=== PATIENT | female | born 1980 | race Caucasian/White ===

== ENCOUNTER 2024-05-31 21:28 | Observation (INO) ==
[2024-05-31 22:32] LABS: Basophils #(Absolute) Auto 0.1 (0.0-0.1)
[2024-05-31 22:33] LABS: Basophils%(Percent) Auto 0.6 (0.1-0.85); Eosinophils#(Absolute)Auto 0.3 (0.0-0.2); Eosinophils%(Percent) Auto 1.1 % (0.4-2.8); Granulocytes % - Auto 73.7 % (47.8-71.3); Granulocytes#(Absolute)- Auto 16.5 (2.3-6.0); Hematocrit 40.1 % (35.9-46.7); Mean Corpuscular Volume 97.8 fl (81.0-93.7); Monocytes #(Absolute)- Auto 1.5 (1.1-3.1); Monocytes %(Percent)- Auto 6.7 % (3.6-9.8); Platelet Count 372 K/uL (152-353)
[2024-05-31 22:38] LABS: White Blood Count 22.9 K/uL (4.3-9.3)
[2024-05-31 22:57] LABS: Amphetamine Screen Urine POS. (NEGATIVE); Cannabinoid Screen Urine POS. (NEGATIVE); Cocaine Screen Urine NEG. (NEGATIVE); Methadone Screen Urine NEG. (NEGATIVE); Opiate Screen Urine NEG. (NEGATIVE)
--- NOTE | 2024-05-31 23:11 | Emergency Department Note ---
HPI - Altered Mental Status General Chief Complaint: Altered Mental Status Stated Complaint: LATHARGIC Time Seen by Provider: 05/31/24 22:30 Source: patient and family (son) Mode of arrival: WC Limitations: altered mental status History of Present Illness HPI narrative: 44-year-old female presents to the ED this evening, via POV, with complaints of altered mental status per family member. Upon arrival, pt was incontinent of urine and bowel. Per son, patient came home with her at approximately 9 PM after a trip to [facility] when pt's came inside and told the son that he could not wake patient. Patient remained in the car reportedly with eyes open, mouth open, with an audible snore. Patient was out for at least 5 to 6 minutes. Patient cannot recall the events. Patient is awake now and complains of right arm numbness x 3 days and states that she has not felt good for the past 3 days. Symptoms include subjective fever, chills, headache, body aches and dry cough. Denies nasal congestion sore throat, sore throat, abdominal pain, chest pain, shortness of breath, urinary complaints, nausea and vomiting, diarrhea, known sick contacts, recent travel. Patient does admit to using weed today, but denies any other drugs. Denies any use of alcohol or other substance. Headache pain is described as 5 out of 10 on pain scale, aching, located in the back of patient's head, better with Tylenol, worse with nothing. 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 Diagnosis unknown. complaint: altered mental status Onset (ago): hour(s) (1.5) Time: 21:00 Timing confirmed by: family member (Son) Severity: moderate Consistency of symptoms: unknown Context: drug abuse (weed) and recent fever (subjective) Associated symptoms: cough (Dry), fever (Subjective fever), chills, headaches and other (body aches) Treatments prior to arrival: other (Patient states she last took Tylenol at 10 AM this morning.) Related Data Allergies Allergy/AdvReac Type Severity Reaction Status Date / Time No Known Drug Allergies Allergy Verified 05/31/24 23:16 Review of Systems Status of ROS 10 or more systems reviewed and unremark able except as noted in history and below Constitutional Reports: fever (Subjective), chills and fatigue Eyes Denies: change in vision, eye discomfort or eye discharge Ears, nose, mouth, and throat Reports: dry mouth; Denies: throat pain, neck pain, throat swelling, difficulty swallowing, hoarseness, ear pain, change in hearing (Patient wears hearing aids chronically) or nasal congestion Cardiovascular Denies: chest pain, palpitations, edema, swelling of feet/ankles or lightheadedness Respiratory Reports: cough (Dry); Denies: shortness of breath, wheezing, pain on inspiration or chest congestion Gastrointestinal Reports: other (Denies dark, tarry stool); Denies: abdominal pain, nausea, vomiting, diarrhea, constipation (Last bowel movement was today and described as normal) or blood in stool Genitourinary Denies: painful urination, urinary frequency, urinary urgency, urinary incontinence, blood in urine, decreased urine ouput, pelvic pain or vaginal discharge Musculoskeletal Reports: other (Generalized body aches); Denies: extremity swelling or limited range of motion Integumentary/Breast Denies: rash, itching, changes in skin color or jaundice Neurological Reports: headache and numbness in extremities (Right arm x 3 days); Denies: weakness in extremities, lack of coordination, dizziness, slurred speech or difficulty communicating thoughts Psychiatric Denies: anxiety or difficulty concentrating Endocrine Reports: fatigue; Denies: excessive urination or excessive thirst Hematologic/Lymphatic Denies: easy bruising or easy bleeding PFSH PFS Medical History Wears hearing aid Hearing deficit GERD (gastroesophageal reflux disease) Hernia Surgical History No pertinent past surgical history Social History (Updated 05/31/24 @ 23:27 by Roslyn Fish APRN) Smoking status: current every day smoker What tobacco products do you use: cigarettes Within the past year, how often did you have a drink containing alcohol: monthly or less Non-prescribed substance use: cannabis (any form) Caffeine: Yes Exam Constitutional: abnormal general appearance (disheveled), (lethargic) and (appears older than stated age), no apparent distress, abnormal body habitus (thin), no limitations and alert Vital Signs - 24 hr 05/31/24 21:30 Temperature 97.9 F Pulse Rate 130 H Respiratory Rate 22 Blood Pressure 128/66 Pulse Oximetry 94 L Oxygen Delivery Me thod Room Air HENMT: normocephalic, head/scalp atraumatic, hearing grossly normal bilaterally (At baseline, patient wears hearing aids chronically), external ears normal, TMs abnormal (dull) (Bilateral) and (fluid behind TM) (Bilateral), nasal mucous membranes normal, external nose normal, oral mucous membranes abnormal (dry) and oropharynx abnormal (erythema) (Mild pharyngeal erythema) Diffuse dental caries Eyes: PERRL, EOMs intact bilaterally, conjunctivae normal, no scleral icterus, alignment normal and periorbital findings normal Neck/C-Spine: visual inspection normal, trachea midline, cervical spine nontender, cervical full ROM noted, supple and no meningeal signs Lymph: no lymphadenopathy noted Chest: inspection of chest normal and palpation of chest normal Respiratory: breath sounds equal bilaterally, normal respiratory effort, clear to auscultation bilaterally, no wheezes and no use of accessory muscles Cardiovascular: heart rate abnormal (tachycardic) and regular rhythm noted Gastrointestinal: abdomen normal to inspection, abdomen soft to palpation, nontender to palpation, nondistended, normoactive bowel sounds, no hepatosplenomegaly and no masses Genitourinary: no CVA tenderness and bladder normal to palpation Back/Pelvis: spine normal to inspection, no thoracic spine tenderness, no lumbar spine tenderness, thoracic spine ROM normal and lumbar spine ROM normal Extremities: normal to inspection, normal to palpation, no tenderness, full ROM and no deformity Neurology: bread pan greaser II-XII intact, no movement abnormality noted, no focal motor deficit noted, no sensory deficits noted, deep tendon reflexes 2+ bilaterally, gait normal, speech normal, coordination normal, no pronator drift noted and GCS normal Psychiatry: mental status grossly normal, oriented x3, thought process normal, cooperative and affect normal Skin: skin color normal, no rash and skin turgor normal Course Course Hospital Course: 2199 - Handoff received from Vickey Choe NP. CBC, CMP, UDS pending. Pt receiving 1L NS IVF bolus. 2234 - Critical lab result-WBC 20 2.9H received. After evaluation of patient, I have ordered blood cultures x 2, lactate, urinalysis, urine , chest x- ray, flu, strep, COVID, RSV, CT head without contrast, an additional 500mL NS IVF bolus (total of 1500ml's; 30mL's/kg per sepsis protocol) and 1 g IV Rocephin. 0100 - Pt's lactate is 3.9. 1g IV Vancomycin ordered. Vital Signs Vital signs: Vital Signs Temperature 97.9 F 05/31/24 21:30 Pulse Rate 130 H 05/31/24 21:30 Respiratory Rate 22 05/31/24 21:30 Blood Pressure 128/66 05/31/24 21:30 Pulse Oximetry 94 L 05/31/24 21:30 Oxygen Delivery Method Room Air 05/31/24 21:30 Temperature 97.9 F 05/31/24 21:30 Pulse Rate 130 H 05/31/24 21:30 Respiratory Rate 22 05/31/24 21:30 Blood Pressure 128/66 05/31/24 21:30 Pulse Oximetry 94 L 05/31/24 21:30 Oxygen Delivery Method Room Air 05/31/24 21:30 MDM - Altered Mental Status MDM Narrative Medical decision making narrative: Patient initially presents with complaint of altered mental status. It is noted that her white blood count is elevated at 22.9 and her lactic acid is elevated at 3.9; however, I do not believe patient is septic from her sinusitis with bilateral otitis media. Patient's leukocytosis, lactic acidosis and tachycardia are most likely related to her amphetamine abuse although she adamantly denies use of amphetamines. Patient does admit to use of marijuana, but otherwise denies any other drug use. 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 Patient has been awake and alert and oriented since arrival to the ED she has no focal deficits. She does appear dehydrated and complains of right arm paresthesia and upper respiratory symptoms. Her flu, strep, COVID and RSV swabs were all negative. Her CT head without contrast reveals no acute intracranial abnormality. Her chest x-ray also shows no acute cardiopulmonary process and her urinalysis is also normal. I have discussed the clinical case, including pertinent positives and negatives with Teresa (UR), and the need for further testing/observation in the inpatient arena. I have made the patient and spouse aware of the current disposition plan and they are in agreement. While in ED patient received a total of 1-1/2 L normal saline IV fluid bolus per sepsis protocol and maintenance fluids at 125 mL/h. Blood cultures x 2 were obtained prior to patient receiving 1 g IV Rocephin that was given for treatment of her sinusitis and bilateral otitis media. Once her lactic acid came back elevated patient was also given 1 g IV vancomycin. Differential Diagnosis Differential diagnosis: Likely alcoholic intoxication, altered mental status, hypoglycemia, hyponatremia, subarachnoid hemorrhage, sepsis and OTHER (amphetamine abuse, syncope, seizure, COVID, Flu, Strep, RSV, Viral URI, Sinusitis) Medical Records Attestation: I reviewed the patient's medical records. Lab Data Attestation: I reviewed the patient's lab results. Labs: Lab Results 05/31/24 05/31/24 05/31/24 Range/Units 21:45 22:10 22:20 WBC 22.9 H* (4.3-9.3) K/uL RBC 4.1 (4.00-5.50) M/uL Hgb 13.9 (12.5-15.8) gm/dL Hct 40.1 (35.9-46.7) % MCV 97.8 H (81.0-93.7) fl MCH 34.0 H (27.6-32.2) pg MCHC 34.8 (33.1-35.3) g/dl RDW 15.9 H (11.4-14.2) % Plt Count 372 H (152-353) K/uL MPV 9.8 (6.9-10.8) fl Gran % 73.7 H (47.8-71.3) % Lymph % (Auto) 17.9 L (20.0-43.0) % [place] % (Auto) 6.7 (3.6-9.8) % Eos % (Auto) 1.1 (0.4-2.8) % Baso % (Auto) 0.6 (0.1-0.85) Lymph # (Auto) 4.0 H (1.1-3.1) [place] # (Auto) 1.5 (1.1-3.1) Eos # (Auto) 0.3 H (0.0-0.2) Baso # (Auto) 0.1 (0.0-0.1) Absolute Gran (auto) 16.5 H (2.3-6.0) Sodium 141 (136-145) mmol/L Potassium 3.6 (3.6-5.2) mmol/L Chloride 104.0 (98-107) mmol/L Carbon Dioxide 27 (21-32) mmol/L Anion Gap 10.0 (4-14) mEq/L BUN 12 (7-18) mg/dL Creatinine 0.7 (0.6-1.3) mg/dL Estimated GFR 108.6 (>59.9) Glucose 93 (70-110) mg/dL Lactic Acid (0.27-1.43) mmol/L Calcium 8.3 L (8.5-10.1) mg/dL Total Bilirubin 0.22 (0.0-1.0) mg/dL AST 31 (15-37) U/L ALT 25 L (30-65) U/L Alkaline Phosphatase 69 (50-136) U/L Total Protein 6.8 (6.4-8.2) g/dL Albumin 3.3 L (3.4-5.0) g/dL Lipase (16.0-77.0) U/L Urine Color (STRAW/YELL.) Urine Appearance (CLEAR) Ur Specific [place] (1.001-1.035) Urine Protein (NEGATIVE) Urine Glucose (UA) (NORMAL) Urine Ketones (NEGATIVE) Urine Occult Blood (NEG - TRACE) Urine Nitrite (NEGATIVE) Urine Bilirubin (NEGATIVE) Urine Urobilinogen (NORMAL) Ur Leukocyte Esterase (NEGATIVE) Urine Test (Negative) Fluid pH (5 - 9) Urine Opiates Screen Neg. (NEGATIVE) Urine Methadone Screen Neg. (NEGATIVE) Barbiturate Screen Neg. (NEGATIVE) Ur Phencyclidine Scrn Neg. (NEGATIVE) Amphetamines Screen Pos. (NEGATIVE) U Benzodiazepines Scrn Neg. (NEGATIVE) Urine Cocaine Screen Neg. (NEGATIVE) U Marijuana (THC) Screen Pos. (NEGATIVE) COVID-19 (SHELLIE) (Not Detectd) Influenza Type A Ag (Negative) Influenza Type B Ag (Negative) Respiratory Virus Ag (Negative) Streptococcus Screen (Negative) 05/31/24 05/31/24 05/31/24 Range/Units 22:47 23:00 23:10 WBC (4.3-9.3) K/uL RBC (4.00-5.50) M/uL Hgb (12.5-15.8) gm/dL Hct (35.9-46.7) % MCV (81.0-93.7) fl MCH (27.6-32.2) pg MCHC (33.1-35.3) g/dl RDW (11.4-14.2) % Plt Count (152-353) K/uL MPV (6.9-10.8) fl Gran % (47.8-71.3) % Lymph % (Auto) (20.0-43.0) % [place] % (Auto) (3.6-9.8) % Eos % (Auto) (0.4-2.8) % Baso % (Auto) (0.1-0.85) Lymph # (Auto) (1.1-3.1) Kleberg # (Auto) (1.1-3.1) Eos # (Auto) (0.0-0.2) Baso # (Auto) (0.0-0.1) Absolute Gran (auto) (2.3-6.0) Sodium (136-145) mmol/L Potassium (3.6-5.2) mmol/L Chloride (98-107) mmol/L Carbon Dioxide (21-32) mmol/L Anion Gap (4-14) mEq/L BUN (7-18) mg/dL Creatinine (0.6-1.3) mg/dL Estimated GFR (>59.9) Glucose (70-110) mg/dL Lactic Acid 3.9 H (0.27-1.43) mmol/L Calcium (8.5-10.1) mg/dL Total Bilirubin (0.0-1.0) mg/dL AST (15-37) U/L ALT (30-65) U/L Alkaline Phosphatase (50-136) U/L Total Protein (6.4-8.2) g/dL Albumin (3.4-5.0) g/dL Lipase 19.0 (16.0-77.0) U/L Urine Color Yellow (STRAW/YELL.) Urine Appearance Clear (CLEAR) Ur Specific [place] 1.010 (1.001-1.035) Urine Protein Negative (NEGATIVE) Urine Glucose (UA) Normal (NORMAL) Urine Ketones Negative (NEGATIVE) Urine Occult Blood Negative (NEG - TRACE) Urine Nitrite Negative (NEGATIVE) Urine Bilirubin Negative (NEGATIVE) Urine Urobilinogen Normal (NORMAL) Ur Leukocyte Esterase Negative (NEGATIVE) Urine Test Negative (Negative) Fluid pH 5.0 (5 - 9) Urine Opiates Screen (NEGATIVE) Urine Methadone Screen (NEGATIVE) Barbiturate Screen (NEGATIVE) Ur Phencyclidine Scrn (NEGATIVE) Amphetamines Screen (NEGATIVE) U Benzodiazepines Scrn (NEGATIVE) Urine Cocaine Screen (NEGATIVE) U Marijuana (THC) Screen (NEGATIVE) COVID-19 (SHELLIE) Not detected (Not Detectd) Influenza Type A Ag Negative (Negative) Influenza Type B Ag Negative (Negative) Respiratory Virus Ag Negative (Negative) Streptococcus Screen Negative (Negative) 06/01/24 Range/Units 01:30 WBC (4.3-9.3) K/uL RBC (4.00-5.50) M/uL Hgb (12.5-15.8) gm/dL Hct (35.9-46.7) % MCV (81.0-93.7) fl MCH (27.6-32.2) pg MCHC (33.1-35.3) g/dl RDW (11.4-14.2) % Plt Count (152-353) K/uL MPV (6.9-10.8) fl Gran % (47.8-71.3) % Lymph % (Auto) (20.0-43.0) % [place] % (Auto) (3.6-9.8) % Eos % (Auto) (0.4-2.8) % Baso % (Auto) (0.1-0.85) Lymph # (Auto) (1.1-3.1) [place] # (Auto) (1.1-3.1) Eos # (Auto) (0.0-0.2) Baso # (Auto) (0.0-0.1) Absolute Gran (auto) (2.3-6.0) Sodium (136-145) mmol/L Potassium (3.6-5.2) mmol/L Chloride (98-107) mmol/L Carbon Dioxide (21-32) mmol/L Anion Gap (4-14) mEq/L BUN (7-18) mg/dL Creatinine (0.6-1.3) mg/dL Estimated GFR (>59.9) Glucose (70-110) mg/dL Lactic Acid 1.3 (0.27-1.43) mmol/L Calcium (8.5-10.1) mg/dL Total Bilirubin (0.0-1.0) mg/dL AST (15-37) U/L ALT (30-65) U/L Alkaline Phosphatase (50-136) U/L Total Protein (6.4-8.2) g/dL Albumin (3.4-5.0) g/dL Lipase (16.0-77.0) U/L Urine Color (STRAW/YELL.) Urine Appearance (CLEAR) Ur Specific [place] (1.001-1.035) Urine Protein (NEGATIVE) Urine Glucose (UA) (NORMAL) Urine Ketones (NEGATIVE) Urine Occult Blood (NEG - TRACE) Urine Nitrite (NEGATIVE) Urine Bilirubin (NEGATIVE) Urine Urobilinogen (NORMAL) Ur Leukocyte Esterase (NEGATIVE) Urine Test (Negative) Fluid pH (5 - 9) Urine Opiates Screen (NEGATIVE) Urine Methadone Screen (NEGATIVE) Barbiturate Screen (NEGATIVE) Ur Phencyclidine Scrn (NEGATIVE) Amphetamines Screen (NEGATIVE) U Benzodiazepines Scrn (NEGATIVE) Urine Cocaine Screen (NEGATIVE) U Marijuana (THC) Screen (NEGATIVE) COVID-19 (SHELLIE) (Not Detectd) Influenza Type A Ag (Negative) Influenza Type B Ag (Negative) Respiratory Virus Ag (Negative) Streptococcus Screen (Negative) Imaging Data Imaging ordered: Chest x-ray and CT scan - head Attestation: I personally reviewed and interpreted this imaging study as follows: My impression: No acute cardiopulmonary process Radiologist's impression: PROCEDURE: CT Head without IV Contrast. HISTORY: Altered mental status and headache with right arm numbness. TECHNIQUE: Axial images were performed through the head without the administration of IV contrast with multiplanar reformations . Dose reduction techniques including Automated Exposure Control (AEC) and adjustment of mA and kV were utilized . COMPARISON: 04/14/2023. TECHNICAL QUALITY: Satisfactory. FINDINGS: Brain shows no mass, hemorrhage, or acute stroke. Ventricles are normal size for patient's age. No acute skull or scalp abnormality. Mild mucosal thickening left maxillary sinus. Clear mastoids. IMPRESSION: 1. Normal CT scan of the brain. 2. Mild sinusitis. THIS IS AN ELECTRONICALLY VERIFIED FINAL REPORT 06/01/2024 12:55 AM - Electronically signed by Reji Jimenez MD Smoking Cessation Time spent discussing smoking cessation with patient: 3 to 10 minutes Patient Acknowledges Need for Cessation: No Additional Comments: I have discussed with and counseled the patient on the health risk of tobacco and cigarette smoke, including heart disease and stroke. There is also the obvious economic benefit to quitting smoking. I have encouraged the patient to pick a date and stop smoking and follow-up with their primary care provider for more information on smoking cessation. I have assured they are aware of the available resources. This included approximately 3 to 5 minutes of education, interaction and documentation. Critical Care Time Critical Care Time Critical Care Time: Yes Total Critical Care Time: 60 Attestation: Altered mental status workup to include: CBC, CMP, initial and 3hr repeat Lactic Acid, UA, urine , urine drug screen, flu, strep, COVID, RSV, CT head without contrast, chest x-ray, BC x2. Patient received 1 g IV Rocephin for treatment of her bilateral otitis media and sinusitis. Once her lactic acid came back elevated at 3.9 she also received 1 g IV vancomycin and 1.5 L normal saline IV bolus per the sepsis protocol. Maintenance fluids now running at 125 mL/h for treatment of patient's dehydration. Arrangements made for admission to observation status. Multiple updates given to patient and family. Discharge Plan Discharge Patient Disposition: Admitted As Observation Condition: Improved Chief Complaint: Altered Mental Status Clinical Impression: Altered mental status, Lactic acidosis, Acute dehydration, Arm paresthesia, right, Bilateral otitis media, Leukocytosis, Cannabis abuse, Amphetamine abuse, Tobacco abuse, Sinusitis Print Language: Occitan Referrals: Celina Pressley DO [Primary Care Provider] - Time of Disposition: 05:40
[2024-05-31] MEDS: 0.9 % SODIUM CHLORIDE 1000 ML 1,000 ML IV STA (23:12)
[2024-05-31 23:51] LABS: Potassium 3.6 mmol/L (3.6-5.2)
[2024-06-01] MEDS ORDERED: 0.9 % SODIUM CHLORIDE MB+ 50 ML IV ONE
[2024-06-01] MEDS ORDERED: CEFTRIAXONE SODIUM 1 GM VIAL ONE (00:01)
[2024-06-01] MEDS: CEFTRIAXONE SODIUM 1 GM in 0.9 % SODIUM CHLORIDE MB+ 50 ML IV ONE (00:02)
[2024-06-01 00:03] LABS: Urine Appearance CLEAR (CLEAR); Urine Blood NEGATIVE (NEG - TRACE); Urine Color YELLOW (STRAW/YELL.)
[2024-06-01 00:04] LABS: Urine Urobilinogen Normal (NORMAL)
[2024-06-01] MEDS ORDERED: 0.9 % SODIUM CHLORIDE 500 ML IV ONE (00:52)
[2024-06-01] MEDS: 0.9 % SODIUM CHLORIDE 500 ML IV STA (01:11)
[2024-06-01] MEDS ORDERED: VANCOMYCIN HCL 1,000 MG VIAL IV ONE (01:13)
[2024-06-01] MEDS ORDERED: 0.9 % SODIUM CHLORIDE 250 ML IV ONE ×2 (01:13→01:55)
[2024-06-01] MEDS: VANCOMYCIN HCL 1,000 MG in 0.9 % SODIUM CHLORIDE 250 ML IV STA (01:57)
[2024-06-01] MEDS: 0.9 % SODIUM CHLORIDE 1000 ML 1,000 ML IV STA (11:13)
[2024-06-01] MEDS: 0.9 % SODIUM CHLORIDE 1000 ML 1,000 ML IV SCH ×2 (11:15→14:00)
[2024-06-01] MEDS: CEFTRIAXONE SODIUM 1 GM in 0.9 % SODIUM CHLORIDE MB+ 50 ML IV SCH (11:52)
[2024-06-01] MEDS: ACETAMINOPHEN 500 MG TABLET PO PRN (11:53)
[2024-06-01] MEDS: PANTOPRAZOLE SODIUM 40 MG TABLET.DR PO ONE (11:53)
[2024-06-01] MEDS: ENOXAPARIN SODIUM 40 MG/0.4 ML SYRINGE SUBQ SCH (11:53)
[2024-06-01] MEDS ORDERED: MAGNESIUM, ALUMINUM HYDROXIDE 30 ML ORAL.SUSP PO PRN (12:00)
[2024-06-01] MEDS ORDERED: bisacodyL 10 MG SUPP.RECT PR PRN (12:00)
[2024-06-01] MEDS ORDERED: ONDANSETRON HCL/PF 4 MG/2 ML VIAL INJ PRN (12:00)
[2024-06-01] MEDS ORDERED: ACETAMINOPHEN 500 MG TABLET PO PRN (12:00)
[2024-06-01] MEDS ORDERED: IBUPROFEN 400 MG TABLET PO PRN (12:00)
[2024-06-01 13:39] LABS: Potassium 3.7 mmol/L (3.6-5.2)
[2024-06-01 15:16] LABS: Basophils #(Absolute) Auto 0.1 (0.0-0.1); Basophils%(Percent) Auto 0.8 (0.1-0.85); Eosinophils%(Percent) Auto 0.5 % (0.4-2.8); Granulocytes % - Auto 65.5 % (47.8-71.3); Granulocytes#(Absolute)- Auto 6.4 (2.3-6.0); Hematocrit 35.9 % (35.9-46.7); Mean Corpuscular Volume 97.2 fl (81.0-93.7); Monocytes %(Percent)- Auto 9.7 % (3.6-9.8); Platelet Count 268 K/uL (152-353); White Blood Count 9.8 K/uL (4.3-9.3)
--- NOTE | 2024-06-01 18:15 | History & Physical Report ---
H&P: HPI History of Present Illness Chief complaint: AMS,LACTIC ACIDOSIS,DEHYDRATION,CAREY OM,AMPHETAMINE Narrative: 44-year-old female presented to the ED, via POV, with complaints of altered mental status per family member. Upon arrival, pt was incontinent of urine and bowel. Per son, patient came home with her at approximately 9 PM after a trip to [facility] when pt's came inside and told the son that he could not wake patient. Patient remained in the car reportedly with eyes open, mouth open, with an audible snore. Patient was out for at least 5 to 6 minutes. Patient cannot recall the events. Patient is awake now and complains of right arm numbness x 3 days and states that she has not felt good for the past 3 days. Symptoms include subjective fever, chills, headache, body aches and dry cough. Denies nasal congestion sore throat, sore throat, abdominal pain, chest pain, shortness of breath, urinary complaints, nausea and vomiting, diarrhea, known sick contacts, recent travel. Patient does admit to using weed today, but denies any other drugs. Denies any use of alcohol or other substance. Headache pain is described as 5 out of 10 on pain scale, aching, located in the back of patient's head, better with Tylenol, worse with nothing. 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 Diagnosis unknown. Admitted patient to med/surg for observation and treatment. Review of Systems Status of ROS 10 or more systems reviewed and unremark able except as noted in history and below Constitutional Reports: fever (Subjective), chills and fatigue Eyes Denies: change in vision, eye discomfort or eye discharge Ears, nose, mouth, and throat Reports: dry mouth; Denies: throat pain, neck pain, throat swelling, difficulty swallowing, hoarseness, ear pain, change in hearing (Patient wears hearing aids chronically) or nasal congestion Cardiovascular Denies: chest pain, palpitations, edema, swelling of feet/ankles, lightheadedness or shortness of breath with exertion Respiratory Reports: cough (Dry); Denies: shortness of breath, wheezing, pain on inspiration or chest congestion Gastrointestinal Reports: other (Denies dark, tarry stool); Denies: abdominal pain, nausea, vomiting, diarrhea, constipation (Last bowel movement was today and described as normal), difficulty swallowing or blood in stool Genitourinary Denies: painful urination, urinary frequency, urinary urgency, urinary incontinence, blood in urine, decreased urine ouput, pelvic pain or vaginal discharge Musculoskeletal Reports: other (Generalized body aches); Denies: neck pain, extremity swelling or limited range of motion Integumentary/Breast Denies: rash, itching, changes in skin color or jaundice Neurological Reports: headache and numbness in extremities (Right arm x 3 days); Denies: weakness in extremities, lack of coordination, dizziness, slurred speech or difficulty communicating thoughts Psychiatric Denies: anxiety or difficulty concentrating Endocrine Reports: fatigue; Denies: excessive urination or excessive thirst Hematologic/Lymphatic Denies: easy bruising or easy bleeding Allergic/Immunologic Denies: throat swelling or wheezing PFSH PFS Medical History (Updated 06/01/24 @ 18:01 by GLADYS Kelley) Wears hearing aid Hearing deficit GERD (gastroesophageal reflux disease) Hernia Surgical History No pertinent past surgical history Social History (Updated 05/31/24 @ 23:27 by Roslyn Fish APRN) Smoking status: current every day smoker What tobacco products do you use: cigarettes Within the past year, how often did you have a drink containing alcohol: monthly or less Non-prescribed substance use: cannabis (any form) Highest level of school completed/degree received: high school Caffeine: Yes Meds Home Medications and Allergies Home Medications Medication Instructions Recorded Confirmed Type omeprazole 20 mg capsule,delayed 20 mg PO BID 06/01/24 06/01/24 History release Allergies Allergy/AdvReac Type Severity Reaction Status Date / Time No Known Drug Allergies Allergy Verified 06/01/24 11:25 Exam Exam: Patient was in boogie's position upon entering room for exam. Constitutional: abnormal general appearance (disheveled), (lethargic) and (appears older than stated age), no apparent distress, abnormal body habitus (thin), no limitations and alert Vital Signs - 24 hr 05/31/24 21:30 05/31/24 22:30 05/31/24 23:00 Temperature 97.9 F Pulse Rate 130 H 124 H 95 H Pulse Rate [Right Carotid] Respiratory Rate 22 21 20 Blood Pressure 128/66 92/46 91/40 Blood Pressure [Le ft Arm] Pulse Oximetry 94 L 95 94 L Oxygen Delivery Me od Room Air 05/31/24 23:30 06/01/24 00:00 06/01/24 01:00 Temperature Pulse Rate 96 H 85 101 H Pulse Rate [Right Carotid] Respiratory Rate 18 Blood Pressure 102/58 105/61 107/56 Blood Pressure [Le ft Arm] Pulse Oximetry 95 96 95 Oxygen Delivery Me od 06/01/24 02:00 06/01/24 02:30 06/01/24 03:00 Temperature Pulse Rate 103 H 99 H 97 H Pulse Rate [Right Carotid] Respiratory Rate 18 17 18 Blood Pressure 127/80 131/79 122/80 Blood Pressure [Le ft Arm] Pulse Oximetry 94 L 98 [facility] 06[facility] 03:30 06/01/24 04:00 06/01/24 04:30 Temperature Pulse Rate 106 H 108 H 107 H Pulse Rate [Right Carotid] Respiratory Rate 17 17 17 Blood Pressure 127/84 133/79 132/89 Blood Pressure [Le ft Arm] Pulse Oximetry 97 97 98 [facility] 06/01/24 05:00 06/01/24 05:30 06/01/24 06:00 Temperature Pulse Rate 104 H 102 H 101 H Pulse Rate [Right Carotid] Respiratory Rate 16 16 17 Blood Pressure 122/71 124/71 137/88 Blood Pressure [Le ft Arm] Pulse Oximetry 98 97 98 [facility] 06/01/24 07:00 06/01/24 08:00 06/01/24 09:20 Temperature 98.2 F Pulse Rate 101 H 100 H 97 H Pulse Rate [Right Carotid] Respiratory Rate 15 16 16 Blood Pressure 122/69 135/73 136/82 Blood Pressure [Le ft Arm] Pulse Oximetry 98 97 97 [facility] 06/01/24 11:03 Temperature 98 F Pulse Rate Pulse Rate [Right Carotid] 99 H Respiratory Rate 20 Blood Pressure Blood Pressure [Le ft Arm] 137/78 Pulse Oximetry 99 [facility] HENMT: normocephalic, head/scalp atraumatic, hearing grossly normal bilaterally (At baseline, patient wears hearing aids chronically), external ears normal, nasal mucous membranes normal, external nose normal, oral mucous membranes abnormal (dry) and oropharynx abnormal (erythema) (Mild pharyngeal er ythema) Diffuse dental caries Eyes: PERRL, EOMs intact bilaterally, conjunctivae normal, no scleral icterus, alignment normal and periorbital findings normal Neck/C-Spine: visual inspection normal, trachea midline, cervical spine nontender, cervical full ROM noted, supple and no meningeal signs Lymph: no lymphadenopathy noted Chest: inspection of chest normal and palpation of chest normal Respiratory: breath sounds equal bilaterally, normal respiratory effort, clear to auscultation bilaterally, no wheezes and no use of accessory muscles Cardiovascular: heart rate abnormal (tachycardic) and regular rhythm noted Gastrointestinal: abdomen normal to inspection, abdomen soft to palpation, nontender to palpation, nondistended, normoactive bowel sounds, no hepatosplenomegaly and no masses Genitourinary: no CVA tenderness and bladder normal to palpation Back/Pelvis: spine normal to inspection, no thoracic spine tenderness, no lumbar spine tenderness, thoracic spine ROM normal and lumbar spine ROM normal Extremities: normal to inspection, normal to palpation, no tenderness, full ROM and no deformity 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, no movement abnormality noted, no focal motor deficit noted, no sensory deficits noted, deep tendon reflexes 2+ bilaterally, gait normal, speech normal, coordination normal, no pronator drift noted and GCS normal Psychiatry: mental status grossly normal, oriented x3, thought process normal, cooperative and affect normal Skin: skin color normal, no rash and skin turgor normal Assessment and Plan Assessment and Plan (1) AMS (altered mental status): Qualifiers: Altered mental status type: unspecified Qualified Code(s): R41.82 - Altered mental status, unspecified Code(s): R41.82 - Altered mental status, unspecified (2) Lactic acidosis: Code(s): E87.20 - Acidosis, unspecified (3) Dehydration: Assessment and Plan: Sodium Chloride 1,000 mls @ 999 mls/hr IV ONCE Sodium Chloride 1,000 mls @ 125 mls/hr IV CONT Code(s): E86.0 - Dehydration (4) Amphetamine abuse: Code(s): F15.10 - Other stimulant abuse, uncomplicated (5) Wears hearing aid: Code(s): Z97.4 - Presence of external hearing-aid Plan Enoxaparin Sodium 40 mg SUBQ Q24H Ceftriaxone Sodium 1 gm in Sodium Chloride 50 mls @ 100 mls/hr IV Q24H Acetaminophen 500 mg PO Q6H PRN Magnesium Hydroxide 30 ml PO Daily PRN Bisacodyl 10 mg IN Daily PRN Ondansetron Hcl 4 mg INJ Q6H PRN Provider will continue to monitor labs and symptoms. Results Labs Labs: CBC WBC Cancelled 06/01/24 Unknown RBC Cancelled 06/01/24 Unknown Hgb Cancelled 06/01/24 Unknown Hct Cancelled 06/01/24 Unknown MCV Cancelled 06/01/24 Unknown MCH Cancelled 06/01/24 Unknown MCHC Cancelled 06/01/24 Unknown RDW Cancelled 06/01/24 Unknown Plt Count Cancelled 06/01/24 Unknown MPV Cancelled 06/01/24 Unknown Gran % Cancelled 06/01/24 Unknown Lymph % (Auto) Cancelled 06/01/24 Unknown [place] % (Auto) Cancelled 06/01/24 Unknown Eos % (Auto) Cancelled 06/01/24 Unknown Baso % (Auto) Cancelled 06/01/24 Unknown Lymph # (Auto) Cancelled 06/01/24 Unknown [place] # (Auto) Cancelled 06/01/24 Unknown Eos # (Auto) Cancelled 06/01/24 Unknown Baso # (Auto) Cancelled 06/01/24 Unknown Absolute Gran (auto) Cancelled 06/01/24 Unknown BMP Sodium 140 mmol/L (136-145) 06/01/24 13:15 Potassium 3.7 mmol/L (3.6-5.2) 06/01/24 13:15 Chloride 107.0 mmol/L (98-107) 06/01/24 13:15 Carbon Dioxide 24 mmol/L (21-32) 06/01/24 13:15 Anion Gap 9.0 mEq/L (4-14) 06/01/24 13:15 BUN 7 mg/dL (7-18) 06/01/24 13:15 Creatinine 0.6 mg/dL (0.6-1.3) 06/01/24 13:15 Estimated GFR 112.7 (>59.9) 06/01/24 13:15 Glucose 142 mg/dL (70-110) H 06/01/24 13:15 Calcium 8.1 mg/dL (8.5-10.1) L 06/01/24 13:15 Total Bilirubin 0.23 mg/dL (0.0-1.0) 06/01/24 13:15 AST 21 U/L (15-37) 06/01/24 13:15 ALT 16 U/L (30-65) L 06/01/24 13:15 Alkaline Phosphatase 70 U/L (50-136) 06/01/24 13:15 Total Protein 6.6 g/dL (6.4-8.2) 06/01/24 13:15 Albumin 3.2 g/dL (3.4-5.0) L 06/01/24 13:15 Liver Function Total Bilirubin 0.23 mg/dL (0.0-1.0) 06/01/24 13:15 AST 21 U/L (15-37) 06/01/24 13:15 ALT 16 U/L (30-65) L 06/01/24 13:15 Alkaline Phosphatase 70 U/L (50-136) 06/01/24 13:15 Total Protein 6.6 g/dL (6.4-8.2) 06/01/24 13:15 Albumin 3.2 g/dL (3.4-5.0) L 06/01/24 13:15 Urine Urine Color Yellow (STRAW/YELL.) 05/31/24 22:47 Urine Appearance Clear (CLEAR) 05/31/24 22:47 Ur Specific [place] 1.010 (1.001-1.035) 05/31/24 22:47 Urine Protein Negative (NEGATIVE) 05/31/24 22:47 Urine Glucose (UA) Normal (NORMAL) 05/31/24 22:47 Urine Ketones Negative (NEGATIVE) 05/31/24 22:47 Urine Occult Blood Negative (NEG - TRACE) 05/31/24 22:47 Urine Nitrite Negative (NEGATIVE) 05/31/24 22:47 Urine Bilirubin Negative (NEGATIVE) 05/31/24 22:47 Urine Urobilinogen Normal (NORMAL) 05/31/24 22:47 Ur Leukocyte Esterase Negative (NEGATIVE) 05/31/24 22:47 Imaging Imaging ordered: Chest x-ray and CT scan - head Radiologist's impression: Portable chest HISTORY: Leukocytosis COMPARISON: None FINDINGS: Heart size is normal. [place] are normal. Lung friere are clear. No pleural effusions identified. Bony thorax is unremarkable. IMPRESSION: No significant abnormality identified CT Head without IV Contrast. HISTORY: Altered mental status and headache with right arm numbness. TECHNIQUE: Axial images were performed through the head without the administration of IV contrast with multiplanar reformations . Dose reduction techniques including Automated Exposure Control (AEC) and adjustment of mA and kV were utilized . COMPARISON: 04/14/2023. TECHNICAL QUALITY: Satisfactory. FINDINGS: Brain shows no mass, hemorrhage, or acute stroke. Ventricles are normal size for patient's age. No acute skull or scalp abnormality. Mild mucosal thickening left maxillary sinus. Clear mastoids. IMPRESSION: 1. Normal CT scan of the brain. 2. Mild sinusitis.
[2024-06-01] MEDS: VANCOMYCIN HCL 1 MG in 0.9 % SODIUM CHLORIDE 250 ML IV STA (20:01)
[2024-06-01 22:14] VITALS: TEMP 98.4
[2024-06-02 03:07] VITALS: BP 148/77; PULSE 86; RESP 19
[2024-06-02 05:45] LABS: Basophils #(Absolute) Auto 0.1 (0.0-0.1); Basophils%(Percent) Auto 0.9 (0.1-0.85); Eosinophils#(Absolute)Auto 0.1 (0.0-0.2); Eosinophils%(Percent) Auto 1.2 % (0.4-2.8); Granulocytes % - Auto 57.3 % (47.8-71.3); Granulocytes#(Absolute)- Auto 4.5 (2.3-6.0); Hematocrit 32.4 % (35.9-46.7); Mean Corpuscular Volume 96.6 fl (81.0-93.7); Monocytes #(Absolute)- Auto 0.7 (1.1-3.1); Monocytes %(Percent)- Auto 9.5 % (3.6-9.8); Platelet Count 254 K/uL (152-353); White Blood Count 7.8 K/uL (4.3-9.3)
[2024-06-02 05:52] LABS: Potassium 3.5 mmol/L (3.6-5.2)
[2024-06-02] MEDS: POTASSIUM CHLORIDE 20 MEQ TAB.ER.PRT PO ONE (12:10)
[2024-06-02] MEDS: MAGNESIUM OXIDE 400 MG TABLET PO ONE (12:10)
--- NOTE | 2024-06-03 08:33 | Discharge Summary ---
DS: Providers Provider Date of admission: 06/01/24 06:02 Primary care physician: Celina Pressley DO Admitting clinician: Roslyn Fish Attending physician on admission: Celina Pressley Attending physician on discharge: Celina Pressley Discharging clinician: Celina Pressley Anticipated date of discharge: 06/02/24 DS: Diagnosis Discharge Diagnosis (1) AMS (altered mental status): Qualifiers: Altered mental status type: unspecified Qualified Code(s): R41.82 - Altered mental status, unspecified (2) Lactic acidosis: (3) Dehydration: (4) Amphetamine abuse: (5) Wears hearing aid: (6) GERD (gastroesophageal reflux disease): Qualifiers: Esophagitis presence: without esophagitis Qualified Code(s): K21.9 - Gastro-esophageal reflux disease without esophagitis (7) Cannabis abuse: (8) Nicotine abuse: (9) Anxiety and depression: DS: Summary Hospital Course Hospital Course: 44-year-old female presented to the ED, via POV, with complaints of altered mental status per family member. Upon arrival, pt was incontinent of urine and bowel. Per son, patient came home with her at approximately 9 PM after a trip to [facility] when pt's came inside and told the son that he could not wake patient. Patient remained in the car reportedly with eyes open, mouth open, with an audible snore. Patient was out for at least 5 to 6 minutes. Patient cannot recall the events. Patient is awake now and complains of right arm numbness x 3 days and states that she has not felt good for the past 3 days. Symptoms include subjective fever, chills, headache, body aches and dry cough. Denies nasal congestion sore throat, sore throat, abdominal pain, chest pain, shortness of breath, urinary complaints, nausea and vomiting, diarrhea, known sick contacts, recent travel. Patient does admit to using weed today, but denies any other drugs. Denies any use of alcohol or other substance. Headache pain is described as 5 out of 10 on pain scale, aching, located in the back of patient's head, better with Tylenol, worse with nothing. 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 Diagnosis unknown. Admitted patient to med/surg for observation and treatment. Patient received electrolyte and fluid replenishment via 0.9% Sodium Chloride, Potassium Chloride, and Magnesium Oxide. Mrs. Erazo's WC was slightly elevated at 9.8, treated with Vacomycin Hcl via IV for suspected infection. Patient received medication for constipation and GERD per protocol. Acute symptoms resolved and returned to patient's baseline. She is ready to discharge home for self care. Education was given for smoking nicotine and Cannibis cessation. Patient is to follow up with PCP in 5-7 days of discharge for post hospital visit. Status at Discharge Overall status at discharge: patient is back to baseline Time Spent with Patient Time attestation: Total time spent providing and/or coordinating discharge services: Exam Constitutional: abnormal general appearance (disheveled) and (appears older than stated age), no apparent distress, abnormal body habitus (thin), no limitations and alert Vital Signs - 24 hr 06/01/24 20:00 06/02/24 00:00 Temperature 98.4 F 98.4 F Pulse Rate [Right Carotid] 96 H 86 Respiratory Rate 20 19 Blood Pressure [Le ft Arm] 146/71 148/77 Pulse Oximetry 97 98 Oxygen Delivery Me thod Room Air Nasal Cannula Oxygen Flow Rate 2 HENMT: normocephalic, head/scalp atraumatic, hearing grossly normal bilaterally (At baseline, patient wears hearing aids chronically), external ears normal, TMs abnormal (dull) (Bilateral) and (fluid behind TM) (Bilateral), nasal mucous membranes normal, external nose normal, oral mucous membranes abnormal (dry), oropharynx abnormal (erythema) (Mild pharyngeal erythema) and dentition abnormal (missing teeth, top/bottom TMTC) Diffuse dental caries Eyes: PERRL, EOMs intact bilaterally, conjunctivae normal, no scleral icterus, alignment normal and periorbital findings normal Neck/C-Spine: visual inspection normal, trachea midline, cervical spine nontender, cervical full ROM noted, supple and no meningeal signs Lymph: no lymphadenopathy noted Chest: inspection of chest normal and palpation of chest normal Respiratory: breath sounds equal bilaterally, normal respiratory effort, clear to auscultation bilaterally, no wheezes and no use of accessory muscles Cardiovascular: heart rate abnormal (bounding) (tachycardic) and regular rhythm noted Gastrointestinal: abdomen normal to inspection, abdomen soft to palpation, nontender to palpation, nondistended, normoactive bowel sounds, no hepatosplenomegaly and no masses Genitourinary: no CVA tenderness and bladder normal to palpation Back/Pelvis: spine normal to inspection, no thoracic spine tenderness, no lumbar spine tenderness, thoracic spine ROM normal and lumbar spine ROM normal Extremities: normal to inspection, normal to palpation, no tenderness, full ROM and no deformity 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: 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, no movement abnormality noted, no focal motor deficit noted, no sensory deficits noted, deep tendon reflexes 2+ bilaterally, gait normal, speech normal, coordination normal, no pronator drift noted and GCS normal Psychiatry: mental status grossly normal, oriented x3, thought process normal, cooperative and affect normal Skin: skin color normal, no rash and skin turgor normal DS: Data Data Completed and Pending Labs on day of discharge: Labs from last 24 hours 06/02/24 05:20 WBC 7.8 RBC 3.4 L Hgb 10.9 L Hct 32.4 L MCV 96.6 H MCH 32.5 H MCHC 33.6 RDW 15.8 H Plt Count 254 MPV 9.0 Gran % 57.3 Lymph % (Auto) 31.1 [place] % (Auto) 9.5 Eos % (Auto) 1.2 Baso % (Auto) 0.9 H Lymph # (Auto) 2.4 [place] # (Auto) 0.7 L Eos # (Auto) 0.1 Baso # (Auto) 0.1 Absolute Gran (auto) 4.5 Sodium 142 Potassium 3.5 L Chloride 109.0 H Carbon Dioxide 27 Anion Gap 6.0 BUN 6 L Creatinine 0.5 L Estimated GFR 117.8 Glucose 93 Calcium 7.9 L Phosphorus 2.9 Magnesium 1.7 L Total Bilirubin 0.20 AST 20 ALT 17 L Alkaline Phosphatase 57 Total Protein 5.6 L Albumin 2.6 L Preliminary micro results at discharge 05/31/24 23:15 Blood Culture - Preliminary Blood - Venous Draw (Peripheral) 05/31/24 23:00 Blood Culture - Preliminary Blood - Venous Draw (Peripheral) Imaging CT scan - head: Radiologist's impression: CT Head without IV Contrast. HISTORY: Altered mental status and headache with right arm numbness. TECHNIQUE: Axial images were performed through the head without the administration of IV contrast with multiplanar reformations . Dose reduction techniques including Automated Exposure Control (AEC) and adjustment of mA and kV were utilized . COMPARISON: 04/14/2023. TECHNICAL QUALITY: Satisfactory. FINDINGS: Brain shows no mass, hemorrhage, or acute stroke. Ventricles are normal size for patient's age. No acute skull or scalp abnormality. Mild mucosal thickening left maxillary sinus. Clear mastoids. IMPRESSION: 1. Normal CT scan of the brain. 2. Mild sinusitis. Chest x-ray: Radiologist's impression: Portable chest HISTORY: Leukocytosis COMPARISON: None FINDINGS: Heart size is normal. [place] are normal. Lung freire are clear. No pleural effusions identified. Bony thorax is unremarkable. IMPRESSION: No significant abnormality identified Discharge Plan Discharge Disposition: Home, Self-Care Condition: Improved Discharge Medications: New famotidine [Pepcid] 40 mg tablet 40 mg PO BID Qty: 14 0RF Continued omeprazole 20 mg capsule,delayed release(DR/EC) 20 mg PO BID Discharge Orders: Discharge Order (Routine); Ordered 06/02/24 Ordered By: Celina Pressley Activity: increase activity as tolerated Diet: advance to your usual diet Interventions: Discharge Assessment Last Done: 06/02/24 11:52 MED/SURG & ICU Observation Charge Sheet Last Done: 06/01/24 23:06 Activity Restrictions/Additional Instructions: smoking and drug cessation education and patient willing to stop the cannabis as she is concerned about how the meth got in her system as she denies any use. not willing to stop smoking. follow up PCP next week and can see sooner if any concerns or questions increase water intake and use ensure for meal replacement if she does not eat or in between meals as tolerated and needed Forms: Portal/Health Info Access Inst Follow-Ups: Celina Pressley DO [Primary Care Provider] - 06/09/24 10:15 am Discharge Date/Time: 06/02/24 12:18
== END 2024-06-02 12:18 | disposition home or self-care (01) ==
LOC: MS 21:28 → ED 21:28 → MS 06-01 07:21
PROVIDERS: ADMIT Nurse Practitioner Family; ATTEND Family Medicine
DX: F41.9 Anxiety disorder, unspecified; Z72.0 Tobacco use; E87.20 Acidosis, unspecified; R51.9 Headache, unspecified; H66.93 Otitis media, unspecified, bilateral; R41.82 Altered mental status, unspecified; Z97.4 Presence of external hearing-aid; K21.9 Gastro-esophageal reflux disease without esophagitis; R50.9 Fever, unspecified; F32.A Depression, unspecified; R05.9 Cough, unspecified; E86.0 Dehydration; D72.828 Other elevated white blood cell count; R20.0 Anesthesia of skin; J01.90 Acute sinusitis, unspecified; F15.10 Other stimulant abuse, uncomplicated; F12.10 Cannabis abuse, uncomplicated